=== PATIENT | male | born 1975 | race African-American/Black ===

== ENCOUNTER 2022-08-02 06:46 | Emergency (ER) | payer OTHER | END 2022-08-02 07:34 | LOC: NAV ERS 06:46 | DX: R55 Syncope and collapse (principal); M25.522 Pain in left elbow; E03.9 Hypothyroidism, unspecified; G40.909 Epilepsy, unspecified, not intractable, without status epilepticus; W18.30XA Fall on same level, unspecified, initial encounter; Y93.F9 Activity, other caregiving; Y92.149 Unspecified place in prison as the place of occurrence of the external cause; Z87.891 Personal history of nicotine dependence; Z79.899 Other long term (current) drug therapy | CPT/HCPCS: 99284 ==